=== PATIENT | female | born 1950 | race Caucasian/White ===

== ENCOUNTER 2017-01-08 10:25 | Emergency (ER) | payer MEDICAID, MEDICARE ==
[~2017-01-08] VITALS: Ht 149.9 cm; Wt 63.5 kg
[~2017-01-08 10:25] MED LIST: ASPI-535 PO; GLIP5TAB13 PO; LISI-325 PO; METF500T4 PO; VIC PO; ZOLP5TAB PO
[2017-01-08 10:34] VITALS: Ht 149.9 cm; Wt 63.5 kg
[2017-01-08 15:28] LABS: BASOPHIL # 0.1 10^3/ul (0.0-0.1); BASOPHILS % 0.5 % (0.0-2.0); EOSINOPHILS # 0.1 10^3/ul (0.0-0.5); EOSINOPHILS % 0.7 % (0.0-7.0); HEMATOCRIT 41.9 % (37.0-47.0); HEMOGLOBIN 13.5 g/dl (12.0-16.0); LYMPHOCYTES # 2.7 10^3/ul (0.8-2.9); LYMPHOCYTES % 26.5 % (15.0-51.0); MEAN CORPUSCULAR HEMOGLOBIN 27.5 pg (29.0-33.0); MEAN CORPUSCULAR HGB CONC 32.2 g/dl (32.0-37.0); MEAN CORPUSCULAR VOLUME 85.3 fl (82.0-101.0); MEAN PLATELET VOLUME 12.1 fl (7.4-10.4); MONOCYTE # 0.8 10^3/ul (0.3-0.9); MONOCYTES % 8.3 % (0.0-11.0); NEUTROPHIL # 6.4 10^3/ul (1.6-7.5); NEUTROPHILS % 63.7 % (39.0-77.0); PLATELET COUNT 211 10^3/UL (140-415); RED BLOOD COUNT 4.91 10^6/ul (4.20-5.40); RED CELL DISTRIBUTION WIDTH 13.7 % (11.5-14.5); WHITE BLOOD COUNT 10.1 10^3/ul (4.8-10.8)
[2017-01-08] MEDS ORDERED: hydrALAzine 20 MG INJ IV ONE ×2 (15:30→16:30)
--- NOTE | 2017-01-08 15:33 | RADRPT ---
PROCEDURE: Chest Radiograph. CLINICAL INDICATION: Abdominal pain TECHNIQUE: Single frontal chest radiograph. COMPARISON: Chest radiograph 08/25/2012 FINDINGS: The cardiomediastinal silhouette is within normal limits. No infiltrate or effusion is seen. Th e bones are intact. IMPRESSION: 1. Unremarkable chest radiograph. RPTAT: KK .Diomedes Martino MD, MD Date Time Electronically viewed and signed by .Diomedes Martino MD, on 01/08/2017 15:33 .B/
[2017-01-08 15:46] LABS: PARTIAL THROMBOPLASTIN TIME 29.9 Sec (25.0-35.0); PROTIME 13.2 Sec (12.2-14.2)
[2017-01-08 16:09] LABS: ALANINE AMINOTRANSFERASE 26 IU/L (13-69); ALBUMIN 4.6 g/dl (3.3-4.9); ALBUMIN/GLOBULIN RATIO 1.35; ALKALINE PHOSPHATASE 85 IU/L (42-121); ANION GAP 24 (8-16); ASPARTATE AMINO TRANSFERASE 23 IU/L (15-46); BILIRUBIN,INDIRECT 0.2 mg/dl (0-1.1); BILIRUBIN,TOTAL 0.2 mg/dl (0.2-1.3); BLOOD UREA NITROGEN 15 mg/dl (7-20); CALCIUM 10.1 mg/dl (8.4-10.2); CARBON DIOXIDE 22 mmol/L (21-31); CHLORIDE 108 mmol/L (97-110); CREATININE 0.78 mg/dl (0.44-1.00); GLUCOSE 80 mg/dl (70-220); POTASSIUM 4.6 mmol/L (3.5-5.1); SODIUM 149 mmol/L (135-144)
[2017-01-08 16:18] LABS: ADD UMIC YES; UR ASCORBIC ACID NEGATIVE (NEGATIVE); UR BACTERIA FEW /HPF (NONE SEEN); UR BILIRUBIN (Dip) NEGATIVE (NEGATIVE); UR BLOOD (Dip) NEGATIVE (NEGATIVE); UR CLARITY SLIGHTLY CLOUDY (CLEAR); UR COLOR YELLOW (YELLOW); UR GLUCOSE (Dip) NEGATIVE (NEGATIVE); UR KETONES (Dip) NEGATIVE (NEGATIVE); UR LEUKOCYTE ESTERASE (Dip) NEGATIVE Leu/ul (NEGATIVE); UR NITRITE (Dip) NEGATIVE (NEGATIVE); UR RBC 1 /HPF (0-5); UR SPECIFIC GRAVITY (Dip) 1.015 (1.003-1.030); UR SQUAMOUS EPITHELIAL CELL FEW /HPF (FEW); UR TOTAL PROTEIN (Dip) 2+ mg/dl (NEGATIVE); UR UROBILINOGEN (Dip) NEGATIVE (NEGATIVE)
[2017-01-08 16:33] LABS: TROPONIN-I < 0.012 ng/ml (0.00-0.12)
[2017-01-08 16:35] VITALS: BP 180/89; PULSE 69; RESP 18
[2017-01-08] MEDS ORDERED: LISI40TA9 PO (16:36)
[2017-01-08] MEDS ORDERED: ATEN100T PO (16:37)
--- NOTE | 2017-01-08 16:39 | ERD ---
ER Documentation Chief Complaint Date/Time DATE: 01/08/17 TIME: 16:37 Chief Complaint TONGUE NUMBNESS HPI This is a 66-year-old female who presents to the emergency room for evaluation of tongue numbness, and high blood pressure. The patient does state that she is taking lisinopril and atenolol. She states that her blood pressure has been of very high at home and she checks her blood pressure and today she checking her blood pressure reading was 280 systolic. She denies any headaches or chest pain associated with this however she came to the ER for evaluation. She states that she has an appointment with her doctor on January 11. ROS All systems reviewed and are negative except as per history of present illness. Medications Home Meds Reported Medications Atenolol* (Atenolol*) 100 Mg Tablet, 100 MG PO DAILY, #30 TAB 01/08/17 Lisinopril* (Lisinopril*) 40 Mg Tablet, 40 MG PO BID, #30 TAB 01/08/17 Aspirin Ec (Aspir 81) 81 Mg Tablet.dr, 81 MG PO DAILY 03/18/12 Glipizide* (Glipizide*) 5 Mg Tablet, 5 MG PO BID 03/18/12 Metformin* (Glucophage*) 500 Mg Tab, 500 MG PO BID 03/18/12 Discontinued Reported Medications Acetaminophen/Hydrocodone (Vicodin) 1 Tab Tab, 1 TAB PO PRN Y 08/31/12 Zolpidem Tartrate* (Ambien*) 5 Mg Tablet, 5 MG PO ONCE EVERY 3 DAYS 03/18/12 Lisinopril-Hydrochlorothiazide (Lisinopril-HCTZ) 1 Tab Tablet, 1 TAB PO BID 03/18/12 Allergies Allergies: Coded Allergies: No Known Drug Allergies (Verified Allergy, Unknown, 01/08/17) PMhx/Soc History of Surgery: Yes (LTKR/IGGY/RT EYE SX) Anesthesia Reaction: No Hx Neurological Disorder: No Hx Respiratory Disorders: No Hx Psychiatric Problems: No Hx Miscellaneous Medical Probl: Yes (DM, "STOMACH PROBLEMS") Hx Alcohol Use: No (OCC) Hx Substance Use: No Hx Tobacco Use: No Smoking Status: Never smoker Physical Exam Vitals Vital Signs Date Time Temp Pulse Resp B/P Pulse Ox O2 Delivery O2 Flow Rate FiO2 01/08/17 16:35 69 18 180/89 100 Room Air 8/4/17 10:34 99.7 103 18 274/138 97 Physical Exam INITIAL VITAL SIGNS: Reviewed by me GENERAL: The patient is well developed and appropriate for usual state of health in no apparent distress HEENT: No tongue swelling, no pharyngeal edema, no signs of angioedema, pupils equal, round, and reactive to light. EOMI. There is no scleral icterus. NECK: C-spine is soft and supple, there is no meningismus. There is no cervical lymphadenopathy. LUNGS: Clear to auscultation bilaterally. There are no rales, wheezes or rhonchi. HEART: Regular rate and rhythm, no murmurs, clicks, rubs or gallops. ABDOMEN: Soft, non-tender, non-distended. There are bowel sounds in all four quadrants. No rebound or guarding. EXTREMITIES: There is no peripheral cyanosis or edema. No focal swelling or erythema. NEUROLOGICAL: The patient moves all four extremities with 5/5 strength. Cranial nerves II - XII are intact. Normal gait. Alert and oriented SKIN: There is no apparent rash or petechiae. HEME/LYMPHATIC: There is no evidence of excessive bruising or lymphedema. PSYCHIATRIC: The patient does not appear anxious or depressed. Result Diagram: 01/08/17 1510 01/08/17 1510 Results 24 hrs Laboratory Tests Test 01/08/17 15:10 01/08/17 15:40 White Blood Count 10.110^3/ul Red Blood Count 4.9110^6/ul Hemoglobin 13.5g/dl Hematocrit 41.9% Mean Corpuscular Volume 85.3fl Mean Corpuscular Hemoglobin 27.5pg Mean Corpuscular Hemoglobin Concent 32.2g/dl Red Cell Distribution Width 13.7% Platelet Count 78955^3/UL Mean Platelet Volume 12.1fl Neutrophils % 63.7% Lymphocytes % 26.5% Monocytes % 8.3% Eosinophils % 0.7% Basophils % 0.5% Nucleated Red Blood Cells % 0.0/100WBC Neutrophils # 6.410^3/ul Lymphocytes # 2.710^3/ul Monocytes # 0.810^3/ul Eosinophils # 0.110^3/ul Basophils # 0.110^3/ul Nucleated Red Blood Cells # 0.010^3/ul Prothrombin Time 13.2Sec Prothrombin Time Ratio 1.0 INR International Normalized Ratio 1.00 Activated Partial Thromboplast Time 29.9Sec Sodium Level 149mmol/L Potassium Level 4.6mmol/L Chloride Level 108mmol/L Carbon Dioxide Level 22mmol/L Anion Gap 24 Blood Urea Nitrogen 15mg/dl Creatinine 0.78mg/dl Glucose Level 80mg/dl Calcium Level 10.1mg/dl Total Bilirubin 0.2mg/dl Direct Bilirubin 0.00mg/dl Indirect Bilirubin 0.2mg/dl Aspartate Amino Transf (AST/SGOT) 23IU/L Alanine Aminotransferase (ALT/SGPT) 26IU/L Alkaline Phosphatase 85IU/L Troponin I < 0.012ng/ml Total Protein 8.0g/dl Albumin 4.6g/dl Globulin 3.40g/dl Albumin/Globulin Ratio 1.35 Lipase 280U/L Urine Color YELLOW Urine Clarity SLIGHTLY CLOUDY Urine pH 6.0 Urine Specific Dawn 1.015 Urine Ketones NEGATIVEmg/dL Urine Nitrite NEGATIVEmg/dL Urine Bilirubin NEGATIVEmg/dL Urine Urobilinogen NEGATIVEmg/dL Urine Leukocyte Esterase NEGATIVELeu/ul Urine Microscopic RBC 1/HPF Urine Microscopic WBC 4/HPF Urine Squamous Epithelial Cells FEW/HPF Urine Bacteria FEW/HPF Urine Hemoglobin NEGATIVEmg/dL Urine Glucose NEGATIVEmg/dL Urine Total Protein 2+mg/dl Current Medications Medications (Trade) Dose Ordered Sig/Drew Route PRN Reason Start Time Stop Time Status Last Admin Dose Admin Hydralazine HCl (Apresoline) 10 mg ONCE ONCE IV 01/08/17 15:30 01/08/17 15:31 DC 01/08/17 15:34 Hydralazine HCl (Apresoline) 10 mg ONCE ONCE IV 01/08/17 16:30 01/08/17 16:31 DC Procedures/MDM EKG: Rate/Rhythm: [Normal Sinus Rhythm] QRS, ST, T-waves: [No changes consistent w/ acute ischemia] Impression: [No evidence of ischemia or arrhythmia] Chest X-ray 1V Interpreted by me: Soft Tissue: No acute abnormalities Bones: No acute abnormalities Mediastinum/Cardiac Silhouette/Lungs: [No acute abnormalities] This 66-year-old female presents to the ER for evaluation of tongue numbness and hypertension. When I evaluated this patient she did note signs of angioedema, no signs of anaphylaxis. She states her tongue has been numb for the past 10 days. The patient is tolerating secretions. She has no uvular deviation and no pharyngeal edema. This patient's blood pressure was 274 systolic when she was triaged. I did obtain lab work to assess her renal function as this patient only has one kidney. Lab work is within normal limits at this time. The patient was given 10 mg of hydralazine and now has a blood pressure of 200/84. She does state she is feeling better at this time. Do not feel the necessity to give this patient extra blood pressure medication as she is already had significant drop in her blood pressure. The patient has no neuro deficits at this time and will be discharged home with a prescription for hydrochlorothiazide instructions to follow-up with her primary care physician on Wednesday per Departure Diagnosis: Primary Impression: Hypertension Additional Impression: Numbness of tongue Condition: Stable MATT HEALY DO Jan 08, 2017 16:39
[2017-01-08] MEDS ORDERED: HYD25 PO (16:41)
== END 2017-01-08 17:23 | disposition home or self-care (01) ==
LOC: E/R 10:25
DX: I10 Essential (primary) hypertension (principal); E11.9 Type 2 diabetes mellitus without complications; R10.9 Unspecified abdominal pain; Z79.84 Long term (current) use of oral hypoglycemic drugs; Z79.82 Long term (current) use of aspirin
CPT/HCPCS: 36415; 71010; 80053; 81001; 83690; 84484; 85025; 85610; 85730; 93005; 96374; 99285; J0360